=== PATIENT | female | born 1970 | race Caucasian/White ===

== ENCOUNTER → 2017-06-06 | Outpatient (CLI) | payer OTHER | LOC: M WUC 10:09 | DX: S90.31XA Contusion of right foot, initial encounter (principal); X58.XXXA Exposure to other specified factors, initial encounter; Y92.89 Other specified places as the place of occurrence of the external cause; Y99.9 Unspecified external cause status ==

== ENCOUNTER 2018-01-16 08:58 | Emergency (ER) | payer OTHER ==
[2018-01-16 09:30] LABS: CONTROL LINE UCG INT CTR LINE PRESENT; URINE PREG TEST NEGATIVE (NEGATIVE)
[2018-01-16 09:31] LABS: KETONE, URINE AUTO RFX NEGATIVE (NEGATIVE); LEUKOCYTE ESTERASE UR AUTO RFX NEGATIVE (NEGATIVE); MUCUS, URINE RFX SMALL (NEGATIVE); NITRITE, URINE AUTO RFX NEGATIVE (NEGATIVE); RBC, URINE AUTO RFX 0 /HPF (0-3); SPECIFIC GRAVITY UR AUTO RFX 1.012 (1.002-1.035); SQUAM EPITHELIAL CELL UR AURFX 3 /HPF (0-6); WBC, URINE AUTO RFX 0 /HPF (0-3)
[2018-01-16] MEDS: NS 1,000 ML IV (09:45)
[2018-01-16 10:30] LABS: BASO # 0.1 10^3/uL (0.0-0.2); BASO % 0.5 % (0.0-1.0); EOS # 0.2 10^3/uL (0.0-0.50); EOS % 1.7 % (0.0-3.0); HEMATOCRIT 37.2 % (36.0-47.0); HEMOGLOBIN 11.8 g/dl (12.0-15.5); IMMATURE GRANULOCYTE % 0.4 % (0-3.0); LYMPH # 1.9 10^3/uL (1.5-4.5); LYMPH % 17.5 % (24.0-44.0); MEAN CORPUSCULAR HEMOGLOBIN 28.4 pg (27.0-33.0); MEAN CORPUSCULAR HGB CONC 31.7 g/dl (32.0-36.5); MEAN CORPUSCULAR VOLUME 89.4 fl (80.0-96.0); MONO # 0.7 10^3/uL (0.0-0.8); MONO % 6.3 % (0.0-5.0); NEUTROPHILS % 73.6 % (36.0-66.0); PLATELET COUNT, AUTOMATED 413 10^3/uL (150-450); RED BLOOD COUNT 4.16 10^6/uL (4.00-5.40); RED CELL DISTRIBUTION WIDTH 13.4 % (11.5-14.5); WHITE BLOOD COUNT 10.9 10^3/uL (4.0-10.0)
[2018-01-16 10:46] LABS: ALBUMIN 3.9 GM/DL (3.2-5.2); ALBUMIN/GLOBULIN RATIO 1.05 (1.00-1.93); ALKALINE PHOSPHATASE 98 U/L (45-117); ALT/SGPT 48 U/L (12-78); AMYLASE 21 U/L (25-115); ANION GAP 8 MEQ/L (8-16); AST/SGOT 32 U/L (7-37); BILIRUBIN,DIRECT < 0.1 MG/DL (0.0-0.2); BILIRUBIN,TOTAL 0.2 MG/DL (0.2-1.0); BLOOD UREA NITROGEN 8 MG/DL (7-18); CALCIUM LEVEL 9.1 MG/DL (8.5-10.1); CARBON DIOXIDE LEVEL 29 MEQ/L (21-32); CHLORIDE LEVEL 102 MEQ/L (98-107); CREATININE FOR GFR 0.54 MG/DL (0.55-1.30); GLOMERULAR FILTRATION RATE > 60.0 (>58); GLUCOSE, FASTING 126 MG/DL (70-100); LIPASE 125 U/L (73-393); POTASSIUM SERUM 4.4 MEQ/L (3.5-5.1); SODIUM LEVEL 139 MEQ/L (136-145); TOTAL PROTEIN 7.6 GM/DL (6.4-8.2)
== END 2018-01-16 11:50 | disposition home or self-care (01) ==
LOC: M ED 08:58
DX: N83.8 Other noninflammatory disorders of ovary, fallopian tube and broad ligament (principal); N85.2 Hypertrophy of uterus; D64.9 Anemia, unspecified; E03.9 Hypothyroidism, unspecified
CPT/HCPCS: 74176

== ENCOUNTER → 2018-02-02 | Outpatient (CLI) | payer OTHER | LOC: M RAD 09:18 | DX: Z12.31 Encounter for screening mammogram for malignant neoplasm of breast (principal); D25.9 Leiomyoma of uterus, unspecified; R92.8 Other abnormal and inconclusive findings on diagnostic imaging of breast | CPT/HCPCS: 76856 ==

== ENCOUNTER → 2018-02-21 | Outpatient (CLI) | payer OTHER, SELFPAY | LOC: M RAD 11:55 | DX: R92.8 Other abnormal and inconclusive findings on diagnostic imaging of breast (principal) | CPT/HCPCS: 77065 ==

== ENCOUNTER → 2018-03-08 | Outpatient (CLI) | payer OTHER ==
[~2018-03-08] MED LIST: LIDOCAINE 1% MDV 20ML VIAL As Ordered
== END ==
LOC: M RADPRO 11:23
DX: N60.31 Fibrosclerosis of right breast (principal); Z88.8 Allergy status to other drugs, medicaments and biological substances; Z91.013 Allergy to seafood; Z79.890 Hormone replacement therapy; Z79.899 Other long term (current) drug therapy; Z79.84 Long term (current) use of oral hypoglycemic drugs
CPT/HCPCS: 19081

== ENCOUNTER → 2018-03-15 | Outpatient (CLI) | payer OTHER ==
[~2018-03-15] MED LIST changes: +FERR324T2 PO; +FERR325T3 PO; +LEVO75TA4 PO; -LIDOCAINE 1% MDV 20ML VIAL As Ordered; +LISI10TA4 PO; +LORA-243 PO; +METF-839 PO; +SERT-138 PO
[2018-03-15 14:12] LABS: BLOOD UREA NITROGEN 12 MG/DL (7-18); CALCIUM LEVEL 9.1 MG/DL (8.5-10.1); CARBON DIOXIDE LEVEL 27 MEQ/L (21-32); CHLORIDE LEVEL 102 MEQ/L (98-107); CREATININE FOR GFR 0.52 MG/DL (0.55-1.30); GLOMERULAR FILTRATION RATE > 60.0 (>58); GLUCOSE, FASTING 223 MG/DL (70-100); POTASSIUM SERUM 4.2 MEQ/L (3.5-5.1); SODIUM LEVEL 138 MEQ/L (136-145)
== END ==
LOC: M WUC 12:25
PROVIDERS: ATTEND Nurse Practitioner Family
DX: I10 Essential (primary) hypertension (principal)

== ENCOUNTER → 2018-03-17 | Outpatient (CLI) | payer OTHER ==
--- NOTE | 2018-03-17 20:51 | ECGEPIP ---
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
== END ==
LOC: M LAB 11:09 → M EKG 11:09
PROVIDERS: ATTEND Anesthesiology
DX: I10 Essential (primary) hypertension (principal); E11.9 Type 2 diabetes mellitus without complications

== ENCOUNTER 2018-03-24 05:45 | Day surgery (SDC) | payer OTHER ==
[2018-03-24] MEDS: LR 1,000 ML IV (06:30)
[2018-03-24 06:43] LABS: BEDSIDE GLUCOSE 160 MG/DL (70-105)
[2018-03-24] MEDS ORDERED: MIDAZOLAM INJ 2 MG/2 ML VIAL (J2250) As Ordered (07:44)
[2018-03-24] MEDS ORDERED: PROPOFOL 200 MG/20 ML VIAL As Ordered (07:44)
[2018-03-24] MEDS ORDERED: LIDOCAINE 2% INJ 100 MG/5 ML SDV (FOR ANES.) As Ordered (07:44)
[2018-03-24] MEDS ORDERED: dexameTHASONE 4 MG/ML 1ML VIAL (J1100) As Ordered (07:44)
[2018-03-24] MEDS ORDERED: ONDANSETRON 4MG/2ML VIAL (J2405) As Ordered (07:44)
[2018-03-24] MEDS ORDERED: fentaNYL 100 MCG/2 ML INJECTION (J3010) As Ordered (07:44)
[2018-03-24] MEDS ORDERED: ePHEDrine SULFATE 25 MG/5 ML(5MG/ML) SYRINGE As Ordered (08:11)
[2018-03-24] MEDS: KETOROLAC 30 MG/ML VIAL (J1885) IV (08:45)
[2018-03-24] MEDS ORDERED: KETOROLAC 30 MG/ML VIAL (J1885) As Ordered (08:51)
[2018-03-24] MEDS ORDERED: METOCLOPRAMIDE INJ 10MG/2ML VIAL (J2765) IV (09:00)
[2018-03-24] MEDS ORDERED: MEPERIDINE INJ 25 MG/ML VIAL (J2175) IV (09:00)
[2018-03-24] MEDS ORDERED: LR 1,000 ML IV (09:00)
[2018-03-24] MEDS ORDERED: ONDANSETRON 4MG/2ML VIAL (J2405) IV (09:00)
[2018-03-24] MEDS ORDERED: fentaNYL 100 MCG/2 ML INJECTION (J3010) IV (09:00)
[2018-03-24] MEDS ORDERED: LABETALOL HCL 100 MG/20 ML VIAL As Ordered (09:14)
[2018-03-24] MEDS: LABETALOL HCL 100 MG/20 ML VIAL IV ×2 (09:15→09:24)
[2018-03-24] MEDS: PERCOCET 5MG/325MG TAB PO (09:22)
== END 2018-03-24 10:37 | disposition home or self-care (01) ==
LOC: M SDC 05:45
DX: N93.9 Abnormal uterine and vaginal bleeding, unspecified (principal); R10.2 Pelvic and perineal pain; N84.0 Polyp of corpus uteri; E03.9 Hypothyroidism, unspecified; E11.9 Type 2 diabetes mellitus without complications; D64.9 Anemia, unspecified; R51 Headache; F41.9 Anxiety disorder, unspecified; J30.89 Other allergic rhinitis; E66.9 Obesity, unspecified; Z68.36 Body mass index [BMI] 36.0-36.9, adult; Z88.8 Allergy status to other drugs, medicaments and biological substances; Z91.013 Allergy to seafood; Z79.899 Other long term (current) drug therapy; Z79.84 Long term (current) use of oral hypoglycemic drugs; Z98.51 Tubal ligation status
CPT/HCPCS: 58563

== ENCOUNTER → 2018-08-01 | Outpatient (CLI) | payer OTHER ==
[2018-08-01 09:55] LABS: BASO # 0.1 10^3/uL (0.0-0.2); BASO % 0.6 % (0.0-1.0); EOS # 0.2 10^3/uL (0.0-0.50); EOS % 1.7 % (0.0-3.0); HEMATOCRIT 36.3 % (36.0-47.0); HEMOGLOBIN 11.8 g/dl (12.0-15.5); LYMPH # 1.9 10^3/uL (1.5-4.5); LYMPH % 17.7 % (24.0-44.0); MEAN CORPUSCULAR HEMOGLOBIN 28.8 pg (27.0-33.0); MEAN CORPUSCULAR HGB CONC 32.5 g/dl (32.0-36.5); MEAN CORPUSCULAR VOLUME 88.5 fl (80.0-96.0); MONO # 0.7 10^3/uL (0.0-0.8); MONO % 6.2 % (0.0-5.0); NEUTROPHILS # 7.8 10^3/uL (1.8-7.7); NEUTROPHILS % 73.3 % (36.0-66.0); PLATELET COUNT, AUTOMATED 330 10^3/uL (150-450); WHITE BLOOD COUNT 10.6 10^3/uL (4.0-10.0)
[2018-08-01 10:30] LABS: ALBUMIN 3.6 GM/DL (3.2-5.2); ALT/SGPT 45 U/L (12-78); BILIRUBIN,TOTAL 0.2 MG/DL (0.2-1.0); BLOOD UREA NITROGEN 18 MG/DL (7-18); CALCIUM LEVEL 8.6 MG/DL (8.5-10.1); CARBON DIOXIDE LEVEL 30 MEQ/L (21-32); CHLORIDE LEVEL 104 MEQ/L (98-107); CHOLESTEROL LEVEL 224 MG/DL (<200); CHOLESTEROL RISK RATIO 5.463 (<5); CREATININE FOR GFR 0.53 MG/DL (0.55-1.30); FREE T3 2.4 PG/ML (2.2-4.0); FREE T4 0.97 NG/DL (0.76-1.46); GLOMERULAR FILTRATION RATE > 60.0 (>58); GLUCOSE, FASTING 138 MG/DL (70-100); HDL CHOLESTEROL 41 MG/DL (>40); IRON (FE) 35 UG/DL (50-170); LDL CHOLESTEROL 128 MG/DL (<100); NON-HDL-C 183 MG/DL; POTASSIUM SERUM 4.5 MEQ/L (3.5-5.1); SODIUM LEVEL 139 MEQ/L (136-145); TOTAL PROTEIN 6.9 GM/DL (6.4-8.2); TRIGLYCERIDES LEVEL 275 MG/DL (<150)
[2018-08-01 10:35] LABS: TOTAL 25(OH) VITAMIN D 30.8 NG/ML (30.0-100.0)
[2018-08-01 10:51] LABS: HEMOGLOBIN A1c 8.3 %
== END ==
LOC: M WUC 08:17
PROVIDERS: ATTEND Nurse Practitioner Family
DX: D50.9 Iron deficiency anemia, unspecified (principal); Z13.21 Encounter for screening for nutritional disorder; E11.9 Type 2 diabetes mellitus without complications; E03.9 Hypothyroidism, unspecified; E78.49 Other hyperlipidemia

== ENCOUNTER → 2018-10-07 | Outpatient (CLI) | payer OTHER ==
[2018-10-07 13:27] LABS: HEMOGLOBIN A1c 6.9 %
== END ==
LOC: M WUC 08:54
PROVIDERS: ATTEND Nurse Practitioner Family
DX: D50.9 Iron deficiency anemia, unspecified (principal); E11.9 Type 2 diabetes mellitus without complications

== ENCOUNTER → 2018-12-07 | Outpatient (CLI) | payer OTHER ==
[2018-12-07 12:38] LABS: HEMATOCRIT 40.5 % (36.0-47.0); MEAN CORPUSCULAR HGB CONC 32.1 g/dl (32.0-36.5); MEAN CORPUSCULAR VOLUME 90.4 fl (80.0-96.0); PLATELET COUNT, AUTOMATED 370 10^3/uL (150-450); RED BLOOD COUNT 4.48 10^6/uL (4.00-5.40); WHITE BLOOD COUNT 10.6 10^3/uL (4.0-10.0)
[2018-12-07 12:50] LABS: ALBUMIN 3.6 GM/DL (3.2-5.2); ALT/SGPT 29 U/L (12-78); BILIRUBIN,TOTAL 0.2 MG/DL (0.2-1.0); BLOOD UREA NITROGEN 10 MG/DL (7-18); CALCIUM LEVEL 9.6 MG/DL (8.5-10.1); CARBON DIOXIDE LEVEL 28 MEQ/L (21-32); CHLORIDE LEVEL 105 MEQ/L (98-107); CHOLESTEROL LEVEL 194 MG/DL (<200); CHOLESTEROL RISK RATIO 4.311 (<5); CREATININE FOR GFR 0.51 MG/DL (0.55-1.30); FERRITIN 19 NG/ML (8-252); FREE T3 2.5 PG/ML (2.2-4.0); FREE T4 0.94 NG/DL (0.76-1.46); GLOMERULAR FILTRATION RATE > 60.0 (>51); GLUCOSE, FASTING 112 MG/DL (70-100); HDL CHOLESTEROL 45 MG/DL (>40); IRON (FE) 54 UG/DL (50-170); LDL CHOLESTEROL 110 MG/DL (<100); NON-HDL-C 149 MG/DL; PERCENT SATURATION 14.7 % (13.2-45.0); POTASSIUM SERUM 5.1 MEQ/L (3.5-5.1); SODIUM LEVEL 141 MEQ/L (136-145); TOTAL IRON BINDING CAPACITY 367 UG/DL (250-450); TOTAL PROTEIN 6.9 GM/DL (6.4-8.2); TRIGLYCERIDES LEVEL 196 MG/DL (<150)
[2018-12-07 12:55] LABS: HEMOGLOBIN A1c 6.2 %
== END ==
LOC: M WUC 08:20
PROVIDERS: ATTEND Family Medicine
DX: D50.9 Iron deficiency anemia, unspecified (principal); E03.9 Hypothyroidism, unspecified; E11.9 Type 2 diabetes mellitus without complications

== ENCOUNTER → 2018-12-15 | Outpatient (CLI) | payer OTHER ==
--- NOTE | 2018-12-21 05:54 | HOLTMON ---
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 Depending on her activity at the time, this could have been a brief run of supraventricular ectopy at that heart rate. Heart rate variability was normal. There were very occasional PACs and no significant runs. No ventricular ectopy. No significant ST events or pauses. No atrial fibrillation was seen. Unremarkable Holter monitor. Electronically Signed on 12-21-2018 5:54:10 EDT by Martin Mcbride
== END ==
LOC: M EKG 09:39
PROVIDERS: ATTEND Family Medicine
DX: R00.2 Palpitations (principal)

== ENCOUNTER → 2019-03-13 | Outpatient (CLI) | payer OTHER ==
[~2019-03-13] MED LIST changes: +LORA1TAB12 PO
[2019-03-13 12:51] LABS: HEMATOCRIT 38.8 % (36.0-47.0); HEMOGLOBIN 12.4 g/dl (12.0-15.5); MEAN CORPUSCULAR VOLUME 90.7 fl (80.0-96.0); PLATELET COUNT, AUTOMATED 334 10^3/uL (150-450); RED BLOOD COUNT 4.28 10^6/uL (4.00-5.40); WHITE BLOOD COUNT 10.8 10^3/uL (4.0-10.0)
[2019-03-13 13:28] LABS: ALBUMIN 3.6 GM/DL (3.2-5.2); ALT/SGPT 26 U/L (12-78); BILIRUBIN,TOTAL 0.2 MG/DL (0.2-1.0); BLOOD UREA NITROGEN 13 MG/DL (7-18); CALCIUM LEVEL 9.3 MG/DL (8.5-10.1); CARBON DIOXIDE LEVEL 30 MEQ/L (21-32); CHLORIDE LEVEL 104 MEQ/L (98-107); CREATININE FOR GFR 0.63 MG/DL (0.55-1.30); GLOMERULAR FILTRATION RATE > 60.0 (>51); GLUCOSE, FASTING 184 MG/DL (70-100); POTASSIUM SERUM 4.8 MEQ/L (3.5-5.1); SODIUM LEVEL 140 MEQ/L (136-145); TOTAL PROTEIN 7.2 GM/DL (6.4-8.2)
== END ==
LOC: M WUC 09:12
PROVIDERS: ATTEND Family Medicine
DX: Z01.818 Encounter for other preprocedural examination (principal)

== ENCOUNTER 2019-03-30 05:54 | Day surgery (SDC) | payer OTHER ==
[~2019-03-30] VITALS: Ht 170.2 cm; Wt 98.6 kg
[2019-03-30] VITALS (7 sets, daily range): BP systolic 152–174; BP diastolic 78–95
[2019-03-30] MEDS ORDERED: ceFAZolin SOD 2 GM in IV 1 EA IV ONE (06:00)
[2019-03-30] MEDS ORDERED: LR 1,000 ML IV ONE (06:00)
[2019-03-30] MEDS ORDERED: LIDOCAINE 1% MDV 20ML VIAL SQ PRN (06:00)
[2019-03-30 06:32] LABS: HEMATOCRIT 36.8 % (36.0-47.0); HEMOGLOBIN 11.5 g/dl (12.0-15.5); MEAN CORPUSCULAR HEMOGLOBIN 28.5 pg (27.0-33.0); MEAN CORPUSCULAR HGB CONC 31.3 g/dl (32.0-36.5); MEAN CORPUSCULAR VOLUME 91.1 fl (80.0-96.0); PLATELET COUNT, AUTOMATED 382 10^3/uL (150-450); RED BLOOD COUNT 4.04 10^6/uL (4.00-5.40)
[2019-03-30] MEDS ORDERED: SUGAMMADEX SODIUM 500 MG/5 ML VIAL (BRIDION) As Ordered ONE (06:43)
[2019-03-30] MEDS ORDERED: PROPOFOL 200 MG/20 ML VIAL As Ordered ONE (06:43)
[2019-03-30] MEDS ORDERED: KETOROLAC 60 MG/2 ML VIAL (J1885) As Ordered ONE (06:43)
[2019-03-30] MEDS ORDERED: LIDOCAINE 2% INJ 100 MG/5 ML SDV (FOR ANES.) As Ordered ONE (06:43)
[2019-03-30] MEDS ORDERED: ROCURONIUM BROMIDE 50 MG/5 ML VIAL As Ordered ONE (06:43)
[2019-03-30] MEDS ORDERED: fentaNYL 100 MCG/2 ML INJECTION (J3010) As Ordered ONE (06:43)
[2019-03-30] MEDS ORDERED: MIDAZOLAM INJ 2 MG/2 ML VIAL (J2250) As Ordered ONE (06:43)
[2019-03-30] MEDS ORDERED: ACETAMINOPHEN 1000MG 100ML IV BTL (OFIRMEV) (J0131 PER 10MG) As Ordered ONE (06:43)
[2019-03-30] MEDS ORDERED: ONDANSETRON 4MG/2ML VIAL (J2405) As Ordered ONE (06:43)
[2019-03-30] MEDS ORDERED: dexameTHASONE 4 MG/ML 1ML VIAL (J1100) As Ordered ONE (06:43)
[2019-03-30] MEDS ORDERED: HYDROmorphone HCL 2 MG/ML 1ML VIAL (J1170) As Ordered ONE (06:43)
[2019-03-30] MEDS ORDERED: ATOR40TA75 PO (06:57)
[2019-03-30] MEDS ORDERED: METHYLENE BLUE 0.5% (5MG/ML) 10 ML AMP (PROVAYBLUE)(Q9968 PER 1MG) As Ordered ONE (07:08)
[2019-03-30] MEDS ORDERED: PHENYLephrine HCL 500 MCG/5 ML (100MCG/ML) SYRINGE (J2370) As Ordered ONE (07:57)
[2019-03-30] MEDS ORDERED: ePHEDrine SULFATE 25 MG/5 ML(5MG/ML) SYRINGE As Ordered ONE (08:21)
[2019-03-30] MEDS: LORATADINE 10 MG TAB PO SCH (09:00)
[2019-03-30] MEDS: FLUTICASONE PROP 0.05% NASAL SPRAY 16 GM (FLONASE) NARES SCH (09:00)
[2019-03-30] MEDS ORDERED: MORPHINE 1MG/ML IN 0.9% NACL 100ML IV BAG As Ordered ONE (12:16)
[2019-03-30] MEDS ORDERED: MORPHINE 1MG/ML IN 0.9% NACL 100ML IV BAG IV PRN (12:30)
[2019-03-30] MEDS ORDERED: NALOXONE INJ 0.4 MG/1 ML VIAL (J2310) IV PRN (12:30)
[2019-03-30] MEDS ORDERED: MEPERIDINE INJ 25 MG/ML VIAL (J2175) IV PRN (12:30)
[2019-03-30] MEDS ORDERED: diphenhydrAMINE INJ 50MG/ML VIAL (J1200) IV PRN (12:30)
[2019-03-30] MEDS ORDERED: NALBUPHINE HCL 10 MG/ML AMP (J2300) IV PRN (12:30)
[2019-03-30] MEDS ORDERED: ONDANSETRON 4MG/2ML VIAL (J2405) IV PRN (12:30)
[2019-03-30] MEDS ORDERED: EPIDURAL/PCA KEYS XX PRN (12:30)
[2019-03-30] MEDS ORDERED: fentaNYL 100 MCG/2 ML INJECTION (J3010) IV PRN (12:30)
[2019-03-30] MEDS ORDERED: METOCLOPRAMIDE INJ 10MG/2ML VIAL (J2765) IV PRN (12:30)
[2019-03-30] MEDS ORDERED: LR 1,000 ML IV SCH (12:30)
[2019-03-30] MEDS ORDERED: oxyCODONE 5MG TAB PO PRN (12:30)
[2019-03-30] MEDS ORDERED: LR 500 ML IV PRN (13:00)
[2019-03-30] MEDS ORDERED: LR 500 ML IV ONE (13:00)
[2019-03-30] MEDS: lisinopriL 20 MG TAB PO SCH (15:04)
[2019-03-30] MEDS: LEVOTHYROXINE 75MCG TABLET (0.075MG) PO SCH (15:04)
[2019-03-30] MEDS: LR 1,000 ML IV SCH ×2 (15:06→21:43)
--- NOTE | 2019-03-30 15:38 | RO ---
DATE OF SURGERY: 03/30/2019 PREOPERATIVE DIAGNOSES/INDICATION FOR SURGERY: Pain, bleeding, fibroids, failed endometrial ablation. POSTOPERATIVE DIAGNOSES: Pain, bleeding, fibroids, failed endometrial ablation, with additional diagnosis of some endometriosis. PROCEDURE: Robotic-assisted hysterectomy with bilateral salpingectomy. Patient retained her ovaries at her request. SURGEON: Melia Cates MD VACUUM FURNACE OPERATOR: None. ANESTHESIA: General endotracheal anesthesia. DESCRIPTION OF PROCEDURE: Brief description of procedure and findings: Erlinda was brought to the operating room, where sufficient general endotracheal anesthesia was induced. She was prepped, draped, and positioned in the usual sterile fashion with the weighted speculum placed, a Lang placed, and the uterine manipulator placed, after the uterus has been sounded to 15. Then, we turned our attention to the abdomen. A transverse semilunar incision was made below the umbilicus. Sharp and blunt dissection were continued through subcutaneous tissue to the level of the rectus fascia, which was transversely incised, secured with #0-Vicryl retention sutures, and the Alyce cannula placed. We then piggy backed the robotic cannula, brought the camera in so that we could view the abdomen. There was normal upper abdomen, not a ton of anterior adhesions. Inferiorly, she did have some bladder adhesions, which we subsequently became aware of but, at this point, we were doing well, and two left-sided, one right-sided ports were placed for the robot. Then, patient was placed in Trendelenburg and the robot was brought over and docked. With the instruments placed, of course with CO2 insufflation as well, which was of course done after the trocar cannula was placed, the robot was, of course, at this point docked, and attention turned to the work from the robotic console. Working from the console and using the uterine manipulator as much as possible, we brought down some of the adhesions on the left side. As noted in the operative photos, the ovary was very close to the uterus, and the tube itself, after the tubal ligation, had scarred such that the fimbria was attached to the ovary but not really to the uterus in a way that I could dissect free at this point without risking disrupting the ovarian blood supply. The decision was made to leave it and come back for it afterward. So, we went ahead and cauterized the utero-ovarian suspensory ligament which was then transected and carefully worked our way through the scar tissue and the foreshortened round ligament. The uterus, as already noted, was quite enlarged and irregular in shape with several visible fibroids, and this meant it was brought up over the pelvic brim, but we were able to elevate the round and work away from the underlying tissues to avoid injury to the ureters. We also noted considerable adhesions over the anterior uterus. The bladder was scarred well up into the lower uterine segment, and so most of the dissection anteriorly was done cold and without the cautery to minimize the risk of injury to the bladder or ureters. Again, we cauterized and transected the utero-ovarian suspensory ligament, portions of the mesentery on the left, and the round ligament and the broad to bring down the peritoneum to start the bladder flap and then worked across much of those adhesions trying to bring the bladder down as much as possible. At this point, the uterus because of its distortion, looked like it was coming down to cervix where the bladder was adherent. It later became evident that this was, in fact, where the (C) section scar was, but it was in the lower uterine segment, but at this point, it visually appeared to be closer to cervix, and we were freeing that up and created a full bladder flap there and then went back to the right side and freed the ovary there. We were able to keep the tube attached to the uterus on the right side. After the utero-ovarian suspensory ligament was cauterized and transected, the round ligament was cauterized and transected on the right. She had some accessory vascular supply, which was not surprising at all given her uterus and so, this was taken care of. Then, we further dissected the broads, bring the ureters as far away as possible, and to further dissect the bladder, and then where we could readily access them well away from bladder, we cauterized the uterine vasculature bilaterally without transecting it at this point, and then continued the anterior dissection and then went over to the left side again with the bladder well down and began the dissection on the left side, and then on the anterior, we had much of those left-sided adhesions freed and came back to middle and could feel that the cuff was still below that adherent bladder, so we brought the bladder down even further. As we were bringing the bladder down and then began the dissection anteriorly for the colpotomy, about a couple centimeters cephalad from that on the uterus, the uterus gave way. I think based on the appearance, based on the other scar tissue, that this was the C section scar. I had used the cold scissors to carefully dissect the bladder free of that area, but I had not cauterized on that area. I cauterized about a centimeter and a half caudal to that, and the uterus just split anteriorly, which was concerning for our prospects of getting the uterus out vaginally, but certainly not a concern in regard to the uterus itself, which of course, coming out anyway. We had already cauterized the blood supply on the lateral aspect, so it was not a particularly vascular area and, of course, that confirmed our orientation in regard to the bladder, which we had been backfilling as needed, and confirmed my suspicion that we had to get as low as I was expecting. We did come through the uterines and then sort of worked down further toward the cervix just hugging the cervix as closely as possible, again, to avoid injury to the ureters. Then, of course at this point, we were able to make the colpotomy anteriorly, again, staying well away from bladder, which had dissected about a centimeter further down from where we needed to make colpotomy. We then were using a 30-degree down scope to visualized this as well, taking care to elevate the cervix with the other instruments so that we could keep the bowel away posteriorly, although the mass of the uterus itself did that fairly well. With the vascular supply controlled bilaterally, we just worked our way around the cervix. We did, of course, have some pumping vaginal vessels again, as would be expected with the size of fibroid uterus, and there was some effort to get the very posterior-most aspect of the dissection because the uterus would not roll over particularly well, based on its sized, but we were able with care to get there. Having completed the colpotomy circumferentially and avoided injury to bowel or ureters or bladder, we went ahead and delivered the cervix into the vaginal canal. Not surprisingly, the uterus would not just deliver through, and I left the robot console to begin working vaginally to deliver the uterus. Working vaginally, I disconnected the uterine manipulator so I could have better access to the cervix, placed tenacula on it, and was able to get tenacula above that split at the lower uterine segment, so we removed the cervix so we could have a better visualization and then placed tenacula on both the left and right side of the uterus and began to bivalve it using the Supercut scissors. We delivered that left side of the uterus into the vagina and removed that and did a myomectomy as well, and then were able to remove the remaining portion of the uterus by bivalving it again so that we could turn it sideways and deliver it through the vagina. This, of course, did have the right tube still attached, again, we knew we still had that left distal tubal portion to obtain. The uterus itself without that tubal portion was weighed. It was 535 grams even after morcellation and, so of course, loss of any contained blood, and a lap was placed into the vagina so that we could regain pneumo. Attention was returned to working at the robotic console. With the robot redocked and the patient, of course, placed back in trend, ect., the vaginal cuff was visualized and there were no actively pumping vessels, so we used the dissecting tools to cauterize and remove the distal portion of the left tube that had the fimbria which had been left behind, and then delivered the left tubal fimbria into the vagina, then, switched out our tools for suture drivers and used V-Loc suture to close the vaginal cuff in a running lock stitch with good approximation and hemostasis achieved. The pelvis was carefully irrigated, reevaluated, the bladder was refilled again to confirm absence of injury, and with these tests completed, the procedure was then ended with the CO2 allowed to escape the abdomen. The robotic wounds closed first at the umbilicus, the deeper portion of that wound closed with #0-Vicryl retention sutures and then the skin at all four wounds closed with #3-0 Vicryl in a subcuticular stitch, and dry, sterile dressings then applied. ESTIMATED BLOOD LOSS FOR PROCEDURE: Was 150 mL. FLUID REPLACEMENT: Was crystalloid. COMPLICATIONS: None. CONDITION AND DISPOSITION: Erlinda tolerated the procedure well and was recovering in the recovery room in good condition. edited: 03/31/2018 0724 polo CASSIDY
[2019-03-30] MEDS ORDERED: METF10004 PO (15:54)
[2019-03-30] MEDS: IBUPROFEN 600 MG TAB PO PRN ×2 (16:50→23:03)
[2019-03-30] MEDS: metFORMIN (GLUCOPHAGE) 1000 MG TABLET PO SCH (16:50)
[2019-03-31 02:00] VITALS: BP 130/75
[2019-03-31] MEDS: IBUPROFEN 600 MG TAB PO PRN ×2 (05:07→11:06)
[2019-03-31] MEDS: LR 1,000 ML IV SCH (05:37)
[2019-03-31 05:44] LABS: HEMATOCRIT 30.2 % (36.0-47.0); MEAN CORPUSCULAR HEMOGLOBIN 28.6 pg (27.0-33.0); MEAN CORPUSCULAR HGB CONC 30.8 g/dl (32.0-36.5); MEAN CORPUSCULAR VOLUME 92.9 fl (80.0-96.0); PLATELET COUNT, AUTOMATED 287 10^3/uL (150-450); RED BLOOD COUNT 3.25 10^6/uL (4.00-5.40); WHITE BLOOD COUNT 13.5 10^3/uL (4.0-10.0)
[2019-03-31 05:45] LABS: HEMOGLOBIN 9.3 g/dl (12.0-15.5)
[2019-03-31] MEDS: LEVOTHYROXINE 75MCG TABLET (0.075MG) PO SCH (05:54)
[2019-03-31 06:00] VITALS: BP 147/76
[2019-03-31] MEDS ORDERED: NORCO, ANEXSIA 5/325MG TABLET (HYDROcodone/ACETAMINOPHEN) PO PRN (06:00)
[2019-03-31 08:35] VITALS: BP 125/64
[2019-03-31] MEDS: metFORMIN (GLUCOPHAGE) 1000 MG TABLET PO SCH (08:35)
[2019-03-31] MEDS: LORATADINE 10 MG TAB PO SCH (08:35)
[2019-03-31] MEDS: lisinopriL 20 MG TAB PO SCH (08:35)
[2019-03-31] MEDS: FLUTICASONE PROP 0.05% NASAL SPRAY 16 GM (FLONASE) NARES SCH (08:36)
[2019-03-31] MEDS ORDERED: SERTRALINE 100 MG TAB PO SCH (09:00)
[2019-03-31] MEDS ORDERED: MOTR200T44 PO (09:27)
[2019-03-31] MEDS ORDERED: NORC1TAB7 PO (09:27)
[2019-03-31 10:00] VITALS: BP 151/77
== END 2019-03-31 11:12 | disposition home or self-care (01) ==
LOC: M SDC 05:54 → M MSPAV 14:47 → M SDC 03-31 11:12
PROVIDERS: ATTEND Obstetrics & Gynecology
DX: N72 Inflammatory disease of cervix uteri (principal); D25.9 Leiomyoma of uterus, unspecified; N80.0 Endometriosis of uterus; E03.9 Hypothyroidism, unspecified; F41.9 Anxiety disorder, unspecified; D64.9 Anemia, unspecified; E66.9 Obesity, unspecified; Z68.36 Body mass index [BMI] 36.0-36.9, adult; E11.9 Type 2 diabetes mellitus without complications; I10 Essential (primary) hypertension; R51 Headache; Z79.899 Other long term (current) drug therapy; Z79.84 Long term (current) use of oral hypoglycemic drugs; J30.1 Allergic rhinitis due to pollen; Z88.5 Allergy status to narcotic agent; Z88.8 Allergy status to other drugs, medicaments and biological substances; Z91.013 Allergy to seafood
CPT/HCPCS: 36415; 58573; 85027; 86850; 86900; 86901; 88307; J0131; J0690; J1100; J1170; J1885; J2250; J2370; J2405; J2765; J3010

== ENCOUNTER → 2019-04-07 | Outpatient (CLI) | payer OTHER ==
[~2019-04-07] MED LIST changes: +ATOR40TA75 PO; +METF10004 PO; +MOTR200T44 PO; +NORC1TAB7 PO
[2019-04-07 10:08] LABS: HEMATOCRIT 33.8 % (36.0-47.0); HEMOGLOBIN 10.8 g/dl (12.0-15.5); MEAN CORPUSCULAR HEMOGLOBIN 28.9 pg (27.0-33.0); MEAN CORPUSCULAR VOLUME 90.4 fl (80.0-96.0); PLATELET COUNT, AUTOMATED 411 10^3/uL (150-450); RED BLOOD COUNT 3.74 10^6/uL (4.00-5.40); WHITE BLOOD COUNT 12.5 10^3/uL (4.0-10.0)
[2019-04-07 10:39] LABS: HEMOGLOBIN A1c 6.4 %
[2019-04-07 10:47] LABS: ALBUMIN 3.6 GM/DL (3.2-5.2); ALT/SGPT 25 U/L (12-78); BILIRUBIN,TOTAL 0.3 MG/DL (0.2-1.0); BLOOD UREA NITROGEN 11 MG/DL (7-18); CALCIUM LEVEL 8.3 MG/DL (8.5-10.1); CARBON DIOXIDE LEVEL 28 MEQ/L (21-32); CHLORIDE LEVEL 106 MEQ/L (98-107); CHOLESTEROL LEVEL 131 MG/DL (<200); CHOLESTEROL RISK RATIO 3.447 (<5); CREATININE FOR GFR 0.56 MG/DL (0.55-1.30); FREE T3 2.2 PG/ML (2.2-4.0); GLOMERULAR FILTRATION RATE > 60.0 (>51); GLUCOSE, FASTING 107 MG/DL (70-100); HDL CHOLESTEROL 38 MG/DL (>40); LDL CHOLESTEROL 54 MG/DL (<100); NON-HDL-C 93 MG/DL; POTASSIUM SERUM 4.7 MEQ/L (3.5-5.1); SODIUM LEVEL 140 MEQ/L (136-145); TOTAL PROTEIN 6.9 GM/DL (6.4-8.2); TRIGLYCERIDES LEVEL 196 MG/DL (<150)
== END ==
LOC: M WUC 08:24
PROVIDERS: ATTEND Family Medicine
DX: R00.2 Palpitations (principal); E03.9 Hypothyroidism, unspecified; E11.9 Type 2 diabetes mellitus without complications

== ENCOUNTER → 2019-10-31 | Outpatient (REF) | payer OTHER ==
[~2019-10-31] MED LIST changes: -LORA1TAB12 PO; +LORA1TAB4 PO
[2019-11-27 14:50] LABS: RED BLOOD COUNT 4.68 10^6/uL (4.00-5.40); WHITE BLOOD COUNT 12.2 10^3/uL (4.0-10.0)
[2019-11-27 14:51] LABS: HEMATOCRIT 41.1 % (36.0-47.0); HEMOGLOBIN 13.4 g/dl (12.0-15.5); MEAN CORPUSCULAR HEMOGLOBIN 28.6 pg (27.0-33.0); MEAN CORPUSCULAR HGB CONC 32.6 g/dl (32.0-36.5); MEAN CORPUSCULAR VOLUME 87.8 fl (80.0-96.0); PLATELET COUNT, AUTOMATED 293 10^3/uL (150-450)
[2019-12-15 13:17] LABS: CREATININE, URINE 99.9 MG/DL; MAU/CREAT RATIO 114.1 MCG/MG (0.0-30.0)
[2019-12-15 13:18] LABS: ALBUMIN 3.8 GM/DL (3.2-5.2); ALT/SGPT 33 U/L (12-78); BILIRUBIN,TOTAL 0.2 MG/DL (0.2-1.0); BLOOD UREA NITROGEN 15 MG/DL (7-18); CALCIUM LEVEL 8.8 MG/DL (8.5-10.1); CARBON DIOXIDE LEVEL 28 MEQ/L (21-32); CHLORIDE LEVEL 106 MEQ/L (98-107); CHOLESTEROL LEVEL 151 MG/DL (<200); CHOLESTEROL RISK RATIO 3.775 (<5); CREATININE FOR GFR 0.55 MG/DL (0.55-1.30); FREE T3 2.4 PG/ML (2.2-4.0); FREE T4 0.87 NG/DL (0.76-1.46); GLOMERULAR FILTRATION RATE > 60.0 (>51); GLUCOSE, FASTING 144 MG/DL (70-100); HDL CHOLESTEROL 40 MG/DL (>40); HEMOGLOBIN A1c 7.3 %; LDL CHOLESTEROL 83 MG/DL (<100); NON-HDL-C 111 MG/DL; POTASSIUM SERUM 4.6 MEQ/L (3.5-5.1); SODIUM LEVEL 137 MEQ/L (136-145); TOTAL PROTEIN 7.1 GM/DL (6.4-8.2); TRIGLYCERIDES LEVEL 139 MG/DL (<150)
== END ==
LOC: M LAB REF 13:21
PROVIDERS: ATTEND Family Medicine
DX: E03.9 Hypothyroidism, unspecified (principal); E11.9 Type 2 diabetes mellitus without complications

== ENCOUNTER → 2020-05-13 | Outpatient (REF) | payer OTHER ==
[~2020-05-13] MED LIST changes: +LISI10TA22 PO; -LISI10TA4 PO
== END ==
LOC: M LAB REF 09:24
PROVIDERS: ATTEND Physician Assistant
DX: N39.0 Urinary tract infection, site not specified (principal)

== ENCOUNTER → 2020-09-10 | Outpatient (CLI) | payer OTHER ==
--- NOTE | 2020-09-11 02:24 | REP ---
INDICATION: PAIN COMPARISON: None. TECHNIQUE: AP, lateral, bilateral oblique views right 3rd digit. FINDINGS: The osseous structures and joint spaces are intact and normal. There is no evidence for acute fracture or dislocation. Surrounding soft tissues are unremarkable. No subcutaneous emphysema or radiodense foreign body. IMPRESSION: Normal examination. No acute fracture or dislocation. <Electronically signed by Juan C Clark > 09/11/20 0227
== END ==
LOC: M WUC 11:56
PROVIDERS: ATTEND Nurse Practitioner Family
DX: M79.644 Pain in right finger(s) (principal)

== ENCOUNTER → 2020-12-23 | Outpatient (CLI) | payer OTHER ==
[2020-12-23 11:19] LABS: HEMATOCRIT 39.8 % (36.0-47.0); MEAN CORPUSCULAR HEMOGLOBIN 28.2 pg (27.0-33.0); MEAN CORPUSCULAR HGB CONC 32.7 g/dl (32.0-36.5); MEAN CORPUSCULAR VOLUME 86.3 fl (80.0-96.0); PLATELET COUNT, AUTOMATED 279 10^3/uL (150-450); RED BLOOD COUNT 4.61 10^6/uL (4.00-5.40); WHITE BLOOD COUNT 9.7 10^3/uL (4.0-10.0)
[2020-12-23 12:24] LABS: ALBUMIN 3.6 GM/DL (3.2-5.2); ALT/SGPT 43 U/L (12-78); BILIRUBIN,TOTAL 0.2 MG/DL (0.2-1.0); BLOOD UREA NITROGEN 16 MG/DL (7-18); CARBON DIOXIDE LEVEL 31 MEQ/L (21-32); CHLORIDE LEVEL 105 MEQ/L (98-107); CHOLESTEROL LEVEL 154 MG/DL (<200); CHOLESTEROL RISK RATIO 3.581 (<5); CREATININE FOR GFR 0.55 MG/DL (0.55-1.30); FERRITIN 87 NG/ML (8-252); FREE T3 2.9 PG/ML (2.2-4.0); FREE T4 0.94 NG/DL (0.76-1.46); GLOMERULAR FILTRATION RATE > 60.0 (>51); GLUCOSE, FASTING 158 MG/DL (70-100); HDL CHOLESTEROL 43 MG/DL (>40); IRON (FE) 65 UG/DL (50-170); LDL CHOLESTEROL 86 MG/DL (<100); NON-HDL-C 111 MG/DL; PERCENT SATURATION 19.4 % (13.2-45.0); POTASSIUM SERUM 4.7 MEQ/L (3.5-5.1); SODIUM LEVEL 140 MEQ/L (136-145); TOTAL IRON BINDING CAPACITY 335 UG/DL (250-450); TRIGLYCERIDES LEVEL 124 MG/DL (<150)
[2020-12-23 12:44] LABS: CREATININE, URINE 91.2 MG/DL; MALB URINE SIEMENS 89.2 MG/L; MAU/CREAT RATIO 97.8 MCG/MG (0.0-30.0)
[2020-12-23 13:30] LABS: HEMOGLOBIN A1c 7.7 %
== END ==
LOC: M WUC 08:32
PROVIDERS: ATTEND Family Medicine
DX: D50.9 Iron deficiency anemia, unspecified (principal); E03.9 Hypothyroidism, unspecified; E11.9 Type 2 diabetes mellitus without complications

== ENCOUNTER → 2021-11-14 | Outpatient (CLI) | payer OTHER ==
[2021-11-14 09:56] LABS: HEMATOCRIT 41.7 % (36.0-47.0); HEMOGLOBIN 13.3 g/dl (12.0-15.5); MEAN CORPUSCULAR HEMOGLOBIN 27.5 pg (27.0-33.0); MEAN CORPUSCULAR HGB CONC 31.9 g/dl (32.0-36.5); MEAN CORPUSCULAR VOLUME 86.3 fl (80.0-96.0); PLATELET COUNT, AUTOMATED 277 10^3/uL (150-450); RED BLOOD COUNT 4.83 10^6/uL (4.00-5.40); WHITE BLOOD COUNT 9.3 10^3/uL (4.0-10.0)
[2021-11-14 10:13] LABS: HEMOGLOBIN A1c 8.3 %
[2021-11-14 10:34] LABS: ALBUMIN 3.8 GM/DL (3.2-5.2); ALT/SGPT 43 U/L (12-78); BILIRUBIN,TOTAL 0.2 MG/DL (0.2-1.0); BLOOD UREA NITROGEN 15 MG/DL (7-18); CALCIUM LEVEL 9.5 MG/DL (8.5-10.1); CARBON DIOXIDE LEVEL 28 MEQ/L (21-32); CHLORIDE LEVEL 104 MEQ/L (98-107); CHOLESTEROL LEVEL 174 MG/DL (<200); CHOLESTEROL RISK RATIO 3.411 (<5); CREATININE FOR GFR 0.51 MG/DL (0.55-1.30); FERRITIN 84 NG/ML (8-252); FREE T3 2.3 PG/ML (2.2-4.0); FREE T4 0.74 NG/DL (0.76-1.46); GLOMERULAR FILTRATION RATE > 60.0 (>51); GLUCOSE, FASTING 199 MG/DL (70-100); HDL CHOLESTEROL 51 MG/DL (>40); IRON (FE) 72 UG/DL (50-170); LDL CHOLESTEROL 93 MG/DL (<100); NON-HDL-C 123 MG/DL; POTASSIUM SERUM 4.7 MEQ/L (3.5-5.1); SODIUM LEVEL 136 MEQ/L (136-145); TOTAL IRON BINDING CAPACITY 343 UG/DL (250-450); TOTAL PROTEIN 7.1 GM/DL (6.4-8.2); TRIGLYCERIDES LEVEL 150 MG/DL (<150)
[2021-11-14 10:54] LABS: CREATININE, URINE 72.7 MG/DL; MAU/CREAT RATIO 618.9 MCG/MG (0.0-30.0)
== END ==
LOC: M WUC 08:07
PROVIDERS: ATTEND Family Medicine
DX: D50.9 Iron deficiency anemia, unspecified (principal); E03.9 Hypothyroidism, unspecified; E11.9 Type 2 diabetes mellitus without complications

== ENCOUNTER → 2021-12-19 | Outpatient (CLI) | payer OTHER | LOC: M WHC 14:47 | PROVIDERS: ATTEND Family Medicine | DX: Z12.31 Encounter for screening mammogram for malignant neoplasm of breast (principal) ==

== ENCOUNTER → 2022-05-22 | Outpatient (CLI) | payer OTHER | LOC: M RAD 17:23 | PROVIDERS: ATTEND Physician Assistant | DX: M76.62 Achilles tendinitis, left leg (principal) ==

== ENCOUNTER → 2022-10-08 | Outpatient (CLI) | payer OTHER ==
[~2022-10-08] MED LIST changes: +LORA1TAB23 PO; -LORA1TAB4 PO
[2022-10-08 10:51] LABS: BASO % 0.4 % (0.0-1.0); EOS # 0.3 10^3/uL (0.0-0.5); EOS % 2.4 % (0.0-3.0); HEMATOCRIT 41.4 % (36.0-47.0); HEMOGLOBIN 13.3 g/dl (12.0-15.5); LYMPH # 2.6 10^3/uL (1.5-5.0); LYMPH % 24.4 % (24.0-44.0); MEAN CORPUSCULAR HEMOGLOBIN 28.1 pg (27.0-33.0); MEAN CORPUSCULAR HGB CONC 32.1 g/dl (32.0-36.5); MEAN CORPUSCULAR VOLUME 87.5 fl (80.0-96.0); MONO # 0.7 10^3/uL (0.0-0.8); MONO % 6.7 % (2.0-8.0); NEUTROPHILS # 6.9 10^3/uL (1.5-8.5); NEUTROPHILS % 65.8 % (36.0-66.0); PLATELET COUNT, AUTOMATED 288 10^3/uL (150-450); RED BLOOD COUNT 4.73 10^6/uL (4.00-5.40); WHITE BLOOD COUNT 10.4 10^3/uL (4.0-10.0)
[2022-10-08 11:17] LABS: ALBUMIN 3.9 G/DL (3.2-5.2); ALKALINE PHOSPHATASE 89 U/L (46-116); ALT/SGPT 25 U/L (7.0-40); AST/SGOT 12 U/L (<34); BILIRUBIN,TOTAL 0.4 MG/DL (0.3-1.2); BLOOD UREA NITROGEN 18 MG/DL (9-23); CARBON DIOXIDE LEVEL 28 MMOL/L (20-31); CHLORIDE LEVEL 104 MMOL/L (98-107); CHOLESTEROL LEVEL 107 MG/DL (<200); CHOLESTEROL RISK RATIO 3.01 (<5); GLOMERULAR FILTRATION RATE > 60.0 (>51); GLUCOSE, FASTING 81 MG/DL (60-100); HDL CHOLESTEROL 35.5 MG/DL (>40); LDL CHOLESTEROL 54.3 MG/DL (<100); NON-HDL-C 71.5 MG/DL; POTASSIUM SERUM 4.6 MMOL/L (3.5-5.1); SODIUM LEVEL 138 MMOL/L (136-145); TOTAL PROTEIN 6.8 G/DL (5.7-8.2); TRIGLYCERIDES LEVEL 86 MG/DL (<150)
[2022-10-08 11:22] LABS: FREE T3 3.4 PG/ML (2.3-4.2)
[2022-10-08 11:24] LABS: FREE T4 1.03 NG/DL (0.89-1.76); HEMOGLOBIN A1c 5.6 % (4.0-6.0)
== END ==
LOC: M WUC 08:13
PROVIDERS: ATTEND Family Medicine
DX: E11.9 Type 2 diabetes mellitus without complications (principal)

== ENCOUNTER → 2023-09-27 | Outpatient (CLI) | payer OTHER ==
[2023-09-27 12:15] LABS: BASO # 0.1 10^3/uL (0.0-0.2); BASO % 0.7 % (0.0-1.0); EOS # 0.2 10^3/uL (0.0-0.5); EOS % 2.4 % (0.0-3.0); HEMATOCRIT 41.6 % (36.0-47.0); HEMOGLOBIN 13.5 g/dl (12.0-15.5); LYMPH # 2.3 10^3/uL (1.5-5.0); LYMPH % 26.2 % (24.0-44.0); MEAN CORPUSCULAR HEMOGLOBIN 28.8 pg (27.0-33.0); MEAN CORPUSCULAR HGB CONC 32.5 g/dl (32.0-36.5); MEAN CORPUSCULAR VOLUME 88.7 fl (80.0-96.0); MONO # 0.6 10^3/uL (0.0-0.8); MONO % 6.4 % (2.0-8.0); NEUTROPHILS # 5.7 10^3/uL (1.5-8.5); PLATELET COUNT, AUTOMATED 265 10^3/uL (150-450); RED BLOOD COUNT 4.69 10^6/uL (4.00-5.40); WHITE BLOOD COUNT 8.9 10^3/uL (4.0-10.0)
[2023-09-27 12:31] LABS: HEMOGLOBIN A1c 5.5 % (4.0-6.0)
[2023-09-27 12:48] LABS: ALBUMIN 4.1 G/DL (3.2-5.2); ALKALINE PHOSPHATASE 87 U/L (46-116); ALT/SGPT 57 U/L (7.0-40); AST/SGOT 27 U/L (<34); BILIRUBIN,TOTAL 0.5 MG/DL (0.3-1.2); BLOOD UREA NITROGEN 19 MG/DL (9-23); CALCIUM LEVEL 9.3 MG/DL (8.5-10.1); CARBON DIOXIDE LEVEL 30 MMOL/L (20-31); CHLORIDE LEVEL 108 MMOL/L (98-107); CHOLESTEROL LEVEL 110 MG/DL (<200); CHOLESTEROL RISK RATIO 2.89 (<5); CREATININE FOR GFR 0.55 MG/DL (0.55-1.30); FREE T3 3.5 PG/ML (2.3-4.2); FREE T4 1.04 NG/DL (0.89-1.76); GLOMERULAR FILTRATION RATE > 60.0 (>51); GLUCOSE, FASTING 90 MG/DL (60-100); LDL CHOLESTEROL 57.8 MG/DL (<100); POTASSIUM SERUM 4.4 MMOL/L (3.5-5.1); SODIUM LEVEL 140 MMOL/L (136-145); TOTAL PROTEIN 6.8 G/DL (5.7-8.2); TRIGLYCERIDES LEVEL 71 MG/DL (<150)
[2023-09-27 12:49] LABS: THYROID STIMULATING HORMONE 1.249 uIU/ML (0.55-4.78)
== END ==
LOC: M WUC 09:05
PROVIDERS: ATTEND Family Medicine
DX: E11.9 Type 2 diabetes mellitus without complications (principal); E03.9 Hypothyroidism, unspecified

== ENCOUNTER → 2024-10-03 | Outpatient (CLI) | payer OTHER ==
[2024-10-03 13:35] LABS: BASO # 0.1 10^3/uL (0.0-0.2); BASO % 0.6 % (0.0-1.0); EOS # 0.3 10^3/uL (0.0-0.5); EOS % 3.7 % (0.0-3.0); LYMPH # 2.1 10^3/uL (1.5-5.0); LYMPH % 26.7 % (24.0-44.0); MONO # 0.5 10^3/uL (0.0-0.8); MONO % 6.5 % (2.0-8.0); NEUTROPHILS # 5.0 10^3/uL (1.5-8.5); NEUTROPHILS % 62.1 % (36.0-66.0); PLATELET COUNT, AUTOMATED 269 10^3/uL (150-450)
[2024-10-03 13:41] LABS: ALT/SGPT 43 U/L (7.0-40); AST/SGOT 31 U/L (<34); CALCIUM LEVEL 9.3 MG/DL (8.5-10.1); CARBON DIOXIDE LEVEL 23 MMOL/L (20-31); CHLORIDE LEVEL 110 MMOL/L (98-107); CHOLESTEROL LEVEL 129 MG/DL (<200); CHOLESTEROL RISK RATIO 2.96 (<5); CREATININE FOR GFR 0.52 MG/DL (0.55-1.30); GLOMERULAR FILTRATION RATE > 90.0 (>51); LDL CHOLESTEROL 72.7 MG/DL (<100); NON-HDL-C 85.5 MG/DL; POTASSIUM SERUM 4.5 MMOL/L (3.5-5.1); SODIUM LEVEL 144 MMOL/L (136-145); TRIGLYCERIDES LEVEL 64 MG/DL (<150)
[2024-10-03 13:43] LABS: FREE T4 0.98 NG/DL (0.89-1.76)
[2024-10-03 13:52] LABS: ESTIMATED AVERAGE GLUCOSE 108.0 MG/DL (60-110)
[2024-10-03 13:58] LABS: CREATININE, URINE 154.3 MG/DL; MALB URINE SIEMENS 10.0 MG/L; MAU/CREAT RATIO 6.4 MCG/MG (0.0-30.0)
== END ==
LOC: M WUC 08:48
PROVIDERS: ATTEND Family Medicine
DX: E11.9 Type 2 diabetes mellitus without complications (principal); E03.9 Hypothyroidism, unspecified